=== PATIENT | female | born 1985 | race Caucasian/White ===

== ENCOUNTER 2021-12-07 16:14 | Emergency (ER) | payer BC ==
[2021-12-07] MEDS ORDERED: NA CHLORIDE 0.9% 1,000 ML ONE (17:21)
[2021-12-07] MEDS ORDERED: NA CHLORIDE 0.9% 500 ML ONE ×2 (17:21→20:47)
[2021-12-07] MEDS ORDERED: ASPIRIN 81 MG CHEWABLE TABLET ONE (17:21)
[2021-12-07 17:24] LABS: Urine Blood Negative (Negative); Urine Glucose Negative (Negative); Urine Protein Negative (Negative); Urine Specific Gravity 1.015 (1.005-1.030)
[2021-12-07 17:52] LABS: Urine Specific Gravity/Preg 1.015 (1.005-1.030)
[2021-12-07 18:22] LABS: Absolute Lymphocytes (CBC) 1.5 K/uL (0.7-4.9); Hematocrit 42.7 % (36.0-45.0); Lymphocytes % 34.8 % (15.3-44.8); MPV 9.1 fL (7.6-11.3); RBC Red Blood Cell Count 4.73 M/uL (3.86-4.86)
[2021-12-07 18:23] LABS: Protime INR 1.07
[2021-12-07 18:41] LABS: Albumin 3.9 g/dL (3.4-5.0); Bilirubin Direct 0.1 mg/dL (0-0.2); Bilirubin Total 0.5 mg/dL (0.2-1.0); Magnesium 2.6 mg/dL (1.8-2.4); Potassium 3.3 mmol/L (3.5-5.1); Protein, Total 7.1 g/dL (6.4-8.2); Troponin High Sensitivity 8.5 pg/mL (<58.9)
--- NOTE | 2021-12-07 18:52 | RAD REPORT ---
EXAM DESCRIPTION: RAD - Chest Single View - 12/07/2021 6:23 pm CLINICAL HISTORY: CHEST PAIN COMPARISON: CHEST SINGLE VIEW dated 12/21/2013 FINDINGS: Lines: None. Lungs: No evidence of edema or pneumonia. Pleural: No significant pleural effusions or pneumothorax. Cardiac: The heart size is within normal limits. Bones: No acute fractures. Other: IMPRESSION: No acute cardiopulmonary disease.
--- NOTE | 2021-12-07 20:26 | RAD REPORT ---
EXAM DESCRIPTION: US - Abdomen Exam Limited - 12/07/2021 8:10 pm CLINICAL HISTORY: ABD PAIN COMPARISON: Abdomen Pelvis Wo Contrast dated 09/21/2021; Chest For Pe Angio dated 12/07/2021 FINDINGS: The gallbladder demonstrates no gallstones. No pericholecystic fluid or gallbladder wall t hickening. The common bile duct is normal measuring 3 mm. The liver demonstrates no findings of intrahepatic biliary dilatation. IMPRESSION: Unremarkable examination.
--- NOTE | 2021-12-07 20:31 | RAD REPORT ---
EXAM DESCRIPTION: CT - Chest For Pe Angio - 12/07/2021 8:20 pm CLINICAL HISTORY: Chest pain;Dyspnea COMPARISON: No comparisons FINDINGS: Chest Wall: No suspicious thyroid nodules or pathologic lymphadenopathy. Breast prostheses . Lungs: No acute abnormality. Pleura: No significant effusions or pneumothorax. Mediastinum/vijaya: No pathologic lymphadenopathy. Pulmonary arteries/Aorta: No filling defect identified. No aortic aneurysm. Heart: No significant pericardial effusion. Normal heart size. Upper abdomen: No acute abnormality. Bones: No acute abnormality. All CT scans are performed using dose optimization technique as appropriate and may include automated exposure control or mA/KV adjustment according to patient size. IMPRESSION: Negative for pulmonary embolism. No acute findings within the chest.
--- NOTE | 2021-12-07 20:32 | RAD REPORT ---
EXAM DESCRIPTION: CTAbdomen Pelvis W Contrast - 12/07/2021 8:20 pm CLINICAL HISTORY: ABD PAIN COMPARISON: No comparisons TECHNIQUE: CT of the abdomen and pelvis was performed. All CT scans are performed using dose optimization technique as appropriate and may include automated exposure control or mA/KV adjustment according to patient size. FINDINGS: Lower chest: No acute abnormality. Breast prostheses . Liver: No acute abnormality or suspicious lesions. Biliary: No biliary ductal dilatation. Stomach: No significant focal abnormality. Duodenum: No significant focal abnormality. Pancreas: No significant abnormality. Spleen: No significant abnormality. Adrenal: No suspicious lesions. Kidney/ureter: No hydronephrosis. No renal calculi. Retroperitoneum: No retroperitoneal adenopathy. Vascular: No aneurysm. Bowel: No significant focal abnormality. Normal appendix. Peritoneum: No ascites or free air. Bladder: Grossly unremarkable. Reproductive: Small volume of pelvic free fluid which is likely physiologic. Physiologic cysts in the right ovary. Bones: No acute fracture. Other: n/a IMPRESSION: No acute intra-abdominal or pelvic finding. Normal appendix. Small volume of pleural miguel e fluid which is likely physiologic.
[2021-12-07] MEDS ORDERED: ONDANSETRON 4 MG/2 ML VIAL ONE (20:46)
[2021-12-07] MEDS ORDERED: POTASSIUM 25 MEQ EFFERV TAB ONE (20:47)
[2021-12-07] MEDS ORDERED: KETOROLAC 30 MG/ML INJ ONE (20:47)
--- NOTE | 2021-12-07 20:59 | ER ---
Nurse's Notes [facility] Name: Candelaria Amador Age: 36 yrs Sex: Female : 1985 Arrival Date: 12/07/2021 Time: 16:17 Bed 18 Private MD: Diagnosis: Abdominal tenderness;Chest pain, unspecified Presentation: 12/07 16:21 Chief complaint: Patient states: RUQ, R chest, R shoulder, R back pain for 3 days. ll1 States she had similar pains in September. Bloated and slightly constipated. Pain to R chest increases with deep breathing. No fever or cough. Coronavirus screen: Vaccine status: Patient reports being unvaccinated. Client denies travel out of the [place] in the last 14 days. difficulty breathing, shortness of breath, Client presents with at least one sign or symptom that may indicate coronavirus-19. Standard/surgical mask placed on the client. Ebola Screen: Patient denies travel to an Ebola-affected area in the 21 days before illness onset. Initial Sepsis Screen: Does the patient meet any 2 criteria? No. Patient's initial sepsis screen is negative. Does the patient have a suspected source of infection? No. Patient's initial sepsis screen is negative. Risk Assessment: Do you want to hurt yourself or someone else? Patient reports no desire to harm self or others. Onset of symptoms was December 05, 2021. 16:21 Method Of Arrival: Ambulatory [facility] 16:21 Acuity: SALMA 3 ll1 Triage Assessment: 17:08 General: Appears in no apparent distress. Behavior is calm. Pain: Complains of pain in jg9 chest and abdomen. 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 - Social history:: Smoking status: Patient denies any tobacco usage or history of. - Family history:: not pertinent. Screenin:08 Abuse screen: Denies threats or abuse. Denies injuries from another. Nutritional jg9 screening: No deficits noted. Tuberculosis screening: No symptoms or risk factors identified. Fall Risk None identified. Assessment: 17:07 Pain: Complains of pain in chest and abdomen-lrft sided chest pain that radiates to the jg9 left flank and LLQ. Cardiovascular: Reports chest pain, shortness of breath. 17:09 Pain: Pain radiates to abdomen-left flank. jg9 17:10 Pain: Pain began months. jg9 20:00 Reassessment: Patient appears in no apparent distress at this time. No changes from ll3 previously documented assessment. Patient and/or family updated on plan of care and expected duration. Pain level reassessed. Patient is alert, oriented x 3, equal unlabored respirations, skin warm/dry/pink. 21:01 Reassessment: Patient appears in no apparent distress at this time. No changes from ll3 previously documented assessment. Patient and/or family updated on plan of care and expected duration. Pain level reassessed. Patient is alert, oriented x 3, equal unlabored respirations, skin warm/dry/pink. Vital Signs: 16:21 BP 135 / 89; Pulse 94; Resp 16; Temp 99.3; Pulse Ox 99% ; Weight 52.62 kg; Height 5 ft. ll1 5 in. (165.10 cm); Pain 7/10; 17:08 BP 113 / 79; Pulse 78; Resp 14 S; Pulse Ox 100% ; jg9 17:45 BP 124 / 74; Pulse 77; Resp 12 S; Pulse Ox 100% on R/A; jg9 19:15 BP 111 / 92; Pulse 76; Resp 14 S; Pulse Ox 100% on R/A; jg9 21:01 BP 106 / 69; Pulse 81; Pulse Ox 100% on R/A; ll3 16:21 Body Mass Index 19.30 (52.62 kg, 165.10 cm) ll1 ED Course: 16:17 Patient arrived in ED. as 16:24 Triage completed. ll1 16:25 Arm band placed on Patient placed in an exam room, on a stretcher. ll1 16:31 Anayeli Lopez, COLBY is Primary Nurse. j9 17:06 hSivam Parra MD is Attending Physician. [facility] 17:09 Patient has correct armband on for positive identification. Bed in low position. Call j9 light in reach. Side rails up X 1. field tech on. 17:09 Patient maintains SpO2 saturation greater than 95% on room air. jg9 18:10 Inserted saline lock: 22 gauge in right antecubital area, using aseptic technique. jg9 Blood collected. 18:23 XRAY Chest (1 view) In Process Unspecified. EDMS 19:00 No apparent distress. Resting quietly. jg9 19:44 Inserted saline lock: 22 gauge in left antecubital area, using aseptic technique. ll3 20:11 US Abdomen Limited In Process Unspecified. EDMS 20:21 CT Chest For PE Angio In Process Unspecified. EDMS 20:21 CT Abd/Pelvis - IV Contrast Only In Process Unspecified. EDMS 20:58 Francesca Patricio MD is Referral Physician. cp 21:05 No provider procedures requiring assistance completed. ll3 21:27 IV discontinued, intact, bleeding controlled, No redness/swelling at site. Pressure ll3 dressing applied. Administered Medications: 19:23 Discontinued: NS 0.9% 1000 ml IV at 125 ml/hr continuous blair 18:10 Drug: NS 0.9% 500 ml Route: IV; Rate: bolus; Site: right antecubital; jg9 19:18 Follow up: IV Status: Completed infusion; IV Intake: 500ml jg9 18:18 Drug: Aspirin 81 mg Route: PO; jg9 19:18 Follow up: Response: No adverse reaction jg9 19:18 Drug: NS 0.9% 1000 ml Route: IV; Rate: 125 ml/hr; Site: right antecubital; jg9 20:41 Not Given (Patient Refused): morphine 4 mg IVP once; RASS on ADMIN: Combtv4, Very ll3 Agttd3, Agttd2, Rstlss1, AlertClm0, Drwsy-1, Lt Sdtn-2, Mod Sdtn-3, Dp Sdtn-4, UnArsble-5 20:44 Not Given (Physician Discretion): NS 0.9% with KCl 20 mEq/L 1000 ml IV at 125 ml/hr cp continuous 20:44 Not Given (Physician Discretion): Potassium Effervescent Tablet 25 mEq PO once; cp dissolve in 4 ounces of water or juice 21:00 Drug: Zofran (Ondansetron) 4 mg Route: IVP; Site: left antecubital; ll3 21:06 Follow up: Response: No adverse reaction ll3 21:00 Drug: NS 0.9% 500 ml Route: IV; Rate: bolus; Site: left antecubital; ll3 21:00 Drug: Ketorolac 15 mg Route: IVP; Site: left antecubital; ll3 21:08 Follow up: Response: No adverse reaction ll3 21:00 Drug: Potassium Effervescent Tablet 50 mEq Route: PO; ll3 21:08 Follow up: Response: No adverse reaction 3 Point of Care Testing: Urine : 17:15 hCG Reading: Negative; Control Reading: Positive; jg9 Intake: 19:18 IV: 500ml; Total: 500ml. jg9 Outcome: 20:58 Discharge ordered by . cp 21:27 Discharged to home ambulatory, with family. ll3 21:27 Condition: stable 21:27 Discharge instructions given to patient, family, Instructed on discharge instructions, follow up and referral plans. medication usage, Demonstrated understanding of instructions, follow-up care, medications, Prescriptions given X 2. 21:28 Patient left the ED. ll3 Signatures: Dispatcher [employer] EDMS Shivam Parra MD MD cha Martinez, Amelia as Page, Corey, PA PA cp Lewis, Lynsay, RN RN ll1 Georgi Otto RN RN ll3 Anayeli Lopez RN RN jg9
--- NOTE | 2021-12-07 20:59 | EDPHYS ---
Physician Documentation [facility] Name: Candelaria Amador Age: 36 yrs Sex: Female : 1985 Arrival Date: 12/07/2021 Time: 16:17 Bed 18 Private MD: JJ Physician Shivam Parra HPI: 12/07 19:23 This 36 yrs old Female presents to ER via Ambulatory with complaints of Chest blair Pain. 19:23 The patient or guardian reports chest pain that is located primarily in the anterior blair chest wall, right. The pain does not radiate. Associated signs and symptoms: Pertinent positives: shortness of breath. The chest pain is described as sharp. 19:24 The patient presents with abdominal pain in the upper abdomen, in the right upper blair quadrant. Onset: The symptoms/episode began/occurred today. The symptoms do not radiate. 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 - Social history:: Smoking status: Patient denies any tobacco usage or history of. - Family history:: not pertinent. ROS: 19:25 Constitutional: Negative for fever, chills, and weight loss, Eyes: Negative for injury, blair pain, redness, and discharge, ENT: Negative for injury, pain, and discharge, Neck: Negative for injury, pain, and swelling, Cardiovascular: Negative for chest pain, palpitations, and edema, Respiratory: Negative for shortness of breath, cough, wheezing, and pleuritic chest pain, Back: Negative for injury and pain, : Negative for injury, bleeding, discharge, and swelling, MS/Extremity: Negative for injury and deformity, Skin: Negative for injury, rash, and discoloration, Neuro: Negative for headache, weakness, numbness, tingling, and seizure, Psych: Negative for depression, anxiety, suicide ideation, homicidal ideation, and hallucinations, Allergy/Immunology: Negative for hives, rash, and allergies, Endocrine: Negative for neck swelling, polydipsia, polyuria, polyphagia, and marked weight changes, Hematologic/Lymphatic: Negative for swollen nodes, abnormal bleeding, and unusual bruising. 19:25 Abdomen/GI: Positive for abdominal pain, of the epigastric area and right upper quadrant. Exam: 19:25 Constitutional: This is a well developed, well nourished patient who is awake, alert, blair and in no acute distress. Head/Face: Normocephalic, atraumatic. Eyes: Pupils equal round and reactive to light, extra-ocular motions intact. Lids and lashes normal. Conjunctiva and sclera are non-icteric and not injected. Cornea within normal limits. Periorbital areas with no swelling, redness, or edema. ENT: Nares patent. No nasal discharge, no septal abnormalities noted. Tympanic membranes are normal and external auditory canals are clear. Oropharynx with no redness, swelling, or masses, exudates, or evidence of obstruction, uvula midline. Mucous membranes moist. Neck: Trachea midline, no thyromegaly or masses palpated, and no cervical lymphadenopathy. Supple, full range of motion without nuchal rigidity, or vertebral point tenderness. No Meningismus. Chest/axilla: Normal chest wall appearance and motion. Nontender with no deformity. No lesions are appreciated. Cardiovascular: Regular rate and rhythm with a normal S1 and S2. No gallops, murmurs, or rubs. Normal PMI, no JVD. No pulse deficits. Respiratory: Lungs have equal breath sounds bilaterally, clear to auscultation and percussion. No rales, rhonchi or wheezes noted. No increased work of breathing, no retractions or nasal flaring. Back: No spinal tenderness. No costovertebral tenderness. Full range of motion. Female : Normal external genitalia. Skin: Warm, dry with normal turgor. Normal color with no rashes, no lesions, and no evidence of cellulitis. MS/ Extremity: Pulses equal, no cyanosis. Neurovascular intact. Full, normal range of motion. Neuro: Awake and alert, GCS 15, oriented to person, place, time, and situation. Cranial nerves II-XII grossly intact. Motor strength 5/5 in all extremities. Sensory grossly intact. Cerebellar exam normal. Normal gait. Psych: Awake, alert, with orientation to person, place and time. Behavior, mood, and affect are within normal limits. 19:25 Abdomen/GI: Inspection: abdomen appears normal, Bowel sounds: normal, Palpation: mild abdominal tenderness, in the right upper quadrant and abdomen diffusely, Liver: no appreciated palpable abnormalities, Hernia: not appreciated. 19:25 Musculoskeletal/extremity: Extremities: all appear grossly normal, with no appreciated pain with palpation, ROM: full active range of motion, full passive range of motion, Circulation is intact in all extremities. Sensation intact. Compartment Syndrome exam of affected extremity: is normal. no pain, no numbness, no tingling, no sensation deficit, no palor, no weak pulses, DVT Exam: No signs of deep vein thrombosis. no pain, no swelling, no tenderness, negative Homans' sign noted on exam, no appreciated bluish discoloration, no erythema, no increased warmth. 19:34 ECG was reviewed by the Attending Physician. [facility] Vital Signs: 16:21 BP 135 / 89; Pulse 94; Resp 16; Temp 99.3; Pulse Ox 99% ; Weight 52.62 kg; Height 5 ft. ll1 5 in. (165.10 cm); Pain 7/10; 17:08 BP 113 / 79; Pulse 78; Resp 14 S; Pulse Ox 100% ; jg9 17:45 BP 124 / 74; Pulse 77; Resp 12 S; Pulse Ox 100% on R/A; jg9 19:15 BP 111 / 92; Pulse 76; Resp 14 S; Pulse Ox 100% on R/A; jg9 21:01 BP 106 / 69; Pulse 81; Pulse Ox 100% on R/A; ll3 16:21 Body Mass Index 19.30 (52.62 kg, 165.10 cm) ll1 MDM: 17:09 Patient medically screened. [facility] 19:27 Differential diagnosis: abnormal EKG, acute pericarditis, anxiety, cholecystitis, blair Cholelithiasis costochondritis, hiatal hernia, pancreatitis, pleurisy, pneumonia, pneumothorax, pulmonary embolus, bowel obstruction, coronary artery disease, cholecystitis, Cholelithiasis, diverticulitis, gastritis, Hepatitis, Menorrhagia, non-specific abd pain, pancreatitis, Peptic Ulcer Disease, Perf. Duodenal Ulcer, Peritonitis, Pyelonephritis, Ureterolithiasis, urinary tract infection. HEART Score: History: Slightly Suspicious (0), ECG: Normal (0), Age: < or = 45 years (0), Risk Factors: No Risk Factors Known (0), Troponin: < or = 1 x Normal Limit (0), Total Score = 0. The patient's deep vein thrombosis risk score was calculated as follows: Total Score: 0. This patient was found to be at low risk for a deep vein thrombosis by using the Well's assessment criteria. The patient's pulmonary embolism risk score was calculated as follows: Total Score: 0-2 points. This patient was found to be at low risk for a pulmonary embolism by using the Well's assessment criteria. AUBREE Risk Score: TOTAL SCORE = 0. Data reviewed: vital signs, nurses notes, lab test result(s), EKG, radiologic studies, CT scan, plain films, ultrasound. Data interpreted: environmental monitoring technician: rate is 76 beats/min, rhythm is regular, Pulse oximetry: on room air is 100 %. Test interpretation: by ED physician or midlevel provider: ECG, plain radiologic studies. Counseling: I had a detailed discussion with the patient and/or guardian regarding: the historical points, exam findings, and any diagnostic results supporting the discharge/admit diagnosis, lab results, radiology results, the need for outpatient follow up, for definitive care, a family practitioner. 12/07 17:08 Order name: Basic Metabolic Panel; Complete Time: 19:13 [facility] 12/07 20:39 Interpretation: Normal except: K 3.3; CL 113; GLUC 111; GFR 68. cp 12/07 17:08 Order name: CBC with Diff; Complete Time: 19:13 [facility] 12/07 20:39 Interpretation: Normal except: MCV 90.4. cp 12/07 17:08 Order name: LFT's; Complete Time: 19:13 [facility] 12/07 20:40 Interpretation: Normal except: AST 6; ALK 43. cp 12/07 17:08 Order name: Magnesium; Complete Time: 19:13 [facility] 12/07 17:08 Order name: NT PRO-BNP; Complete Time: 19:13 [facility] 12/07 17:08 Order name: PT-INR; Complete Time: 19:13 [facility] 12/07 17:08 Order name: Troponin HS; Complete Time: 19:13 [facility] 12/07 17:08 Order name: XRAY Chest (1 view); Complete Time: 19:13 [facility] 12/07 17:08 Order name: Lipase; Complete Time: 19:13 [facility] 12/07 17:24 Order name: Urine Dipstick-Ancillary; Complete Time: 19:13 EDMS 12/07 20:40 Interpretation: Normal except: UESTR Trace. cp 12/07 17:27 Order name: Urine --Ancillary (enter results); Complete Time: 19:13 eb 12/07 19:21 Order name: CT Chest For PE Angio; Complete Time: 20:38 blair 12/07 19:21 Order name: CT Abd/Pelvis - IV Contrast Only; Complete Time: 20:38 blair 12/07 17:08 Order name: EKG; Complete Time: 17:09 blair 12/07 17:08 Order name: Cardiac monitoring; Complete Time: 17:11 blair 12/07 17:08 Order name: EKG - Nurse/Tech; Complete Time: 17:11 blair 12/07 17:08 Order name: IV Saline Lock; Complete Time: 18:11 blair 12/07 17:08 Order name: Labs collected and sent; Complete Time: 18:11 blair 12/07 19:21 Order name: US Abdomen Limited; Complete Time: 20:38 blair 12/07 17:08 Order name: O2 Per Protocol; Complete Time: 19:19 blair 12/07 17:08 Order name: O2 Sat Monitoring; Complete Time: 17:11 blair 12/07 17:08 Order name: Urine Dipstick-Ancillary (obtain specimen); Complete Time: 17:24 [facility] 12/07 17:08 Order name: Urine Test (obtain specimen); Complete Time: 17:20 blair EC:34 Rate is 77 beats/min. Rhythm is regular. QRS [place] is Normal. MS interval is normal. QRS blair interval is normal. QT interval is normal. No Q waves. T waves are Normal. No ST changes noted. Clinical impression: Normal ECG and No evidence of ischemia. Interpreted by me. Reviewed by me. Administered Medications: 19:23 Discontinued: NS 0.9% 1000 ml IV at 125 ml/hr continuous blair 18:10 Drug: NS 0.9% 500 ml Route: IV; Rate: bolus; Site: right antecubital; jg9 19:18 Follow up: IV Status: Completed infusion; IV Intake: 500ml jg9 18:18 Drug: Aspirin 81 mg Route: PO; jg9 19:18 Follow up: Response: No adverse reaction j9 19:18 Drug: NS 0.9% 1000 ml Route: IV; Rate: 125 ml/hr; Site: right antecubital; jg9 20:41 Not Given (Patient Refused): morphine 4 mg IVP once; RASS on ADMIN: Combtv4, Very ll3 Agttd3, Agttd2, Rstlss1, AlertClm0, Drwsy-1, Lt Sdtn-2, Mod Sdtn-3, Dp Sdtn-4, UnArsble-5 20:44 Not Given (Physician Discretion): NS 0.9% with KCl 20 mEq/L 1000 ml IV at 125 ml/hr cp continuous 20:44 Not Given (Physician Discretion): Potassium Effervescent Tablet 25 mEq PO once; cp dissolve in 4 ounces of water or juice 21:00 Drug: Zofran (Ondansetron) 4 mg Route: IVP; Site: left antecubital; ll3 21:06 Follow up: Response: No adverse reaction ll3 21:00 Drug: NS 0.9% 500 ml Route: IV; Rate: bolus; Site: left antecubital; ll3 21:00 Drug: Ketorolac 15 mg Route: IVP; Site: left antecubital; ll3 21:08 Follow up: Response: No adverse reaction ll3 21:00 Drug: Potassium Effervescent Tablet 50 mEq Route: PO; ll3 21:08 Follow up: Response: No adverse reaction ll3 Point of Care Testing: Urine : 17:15 hCG Reading: Negative; Control Reading: Positive; jg9 Disposition Summary: 12/07/21 20:58 Discharge Ordered Location: Home cp Problem: new cp Symptoms: have improved cp Condition: Stable cp Diagnosis - Abdominal tenderness cp - Chest pain, unspecified cp Followup: blair - With: Private Physician - When: 2 - 3 days - Reason: Recheck today's complaints, Continuance of care, Re-evaluation by your physician Followup: blair - With: - When: 2 - 3 days - Reason: Recheck today's complaints, Continuance of care, Re-evaluation by your physician Discharge Instructions: - Discharge Summary Sheet blair - Abdominal Pain, Adult blair - Nonspecific Chest Pain, Adult blair - Abdominal Pain, Adult, [id number] blair - Nonspecific Chest Pain, Adult, [id number] blair Forms: - Medication Reconciliation Form cp - Thank You Letter cp - Antibiotic Education cp - Prescription Opioid Use cp Prescriptions: - dicyclomine 20 mg Oral tablet - take 1 tablet by ORAL route 4 times per day; 28 tablet; Refills: 0, Product blair Selection Permitted - Pepcid 20 mg Oral Tablet - take 1 tablet by ORAL route every 12 hours for 15 days; 30 tablet; Refills: 0, blair Product Selection Permitted Signatures: Dispatcher [employer] EDMS Shivam Parra MD MD cha Page, Corey, PA PA cp Lewis, Lynsay, RN RN ll1 Georgi Otto RN RN ll3 Anayeli Lopez RN RN jg9 Corrections: (The following items were deleted from the chart) 19:32 17:09 Angio Aorta For Dissection+CT.RAD.BRZ ordered. EDOK EDMS
[2021-12-07 21:50] VITALS: TEMP 99.3
[2021-12-07 21:51] VITALS: O2SAT 100
[2021-12-07 21:55] VITALS: BP 106/69
--- NOTE | 2021-12-10 08:08 | EKG ---
Test Date: 2021-12-07 Test Time: 16:32:31 Online Facilitator: FATOUMATA MEASUREMENT RESULTS: Intervals: Rate: 77 [place]: 132 QRSD: 84 QT: 392 QTc: 443 [place]: P: 80 NJ: 132 QRS: 90 T: 37 INTERPRETIVE STATEMENTS: Normal sinus rhythm with sinus arrhythmia Rightward axis Borderline ECG No previous ECG available for comparison Electronically Signed On 12-10-21 08:03:25 [employer] TECHNICIAN by Juventino Caba
== END 2021-12-07 21:28 | disposition home or self-care (01) ==
LOC: ER 16:14
DX: R07.9 Chest pain, unspecified (principal); R10.819 Abdominal tenderness, unspecified site; Z88.0 Allergy status to penicillin
CPT/HCPCS: 96361; 93005; 85025; 80048; 36415; 83735; 81025; 85610; 80076; 81003; 84484; 83690; 83880; 71275; 74177; 71045; 76705; 96375; 96374; 99285; Q9967; J7040 ×2; J7030; J2405